=== PATIENT | female | born 2000 | race Two or more races ===

== ENCOUNTER 2024-09-04 00:22 | Emergency (ER) | payer OTHER ==
[~2024-09-04] VITALS: Ht 167.6 cm; Wt 90.7 kg
[2024-09-04] MEDS ORDERED: TDAP DIPH,PERTUSS,TET VAC/PF 0.5 ML DISP.SYRIN IM ONE (00:54)
[2024-09-04] MEDS: NEOMY/BACITRA/POLYMYXIN B OINT UD PACKET TP ONE (00:59)
[2024-09-04] MEDS: TDAP DIPH,PERTUSS,TET VAC/PF 0.5 ML DISP.SYRIN IM ONE (01:00)
[2024-09-04 01:04] VITALS: BP 122/80; O2SAT 100
== END 2024-09-04 01:04 | disposition left against medical advice (07) ==
LOC: ER 00:41
DX: S00.91XA Abrasion of unspecified part of head, initial encounter (principal); F10.129 Alcohol abuse with intoxication, unspecified; F17.290 Nicotine dependence, other tobacco product, uncomplicated; K13.79 Other lesions of oral mucosa; K58.9 Irritable bowel syndrome, unspecified; Z59.00 Homelessness unspecified; Y04.0XXA Assault by unarmed brawl or fight, initial encounter; Y93.89 Activity, other specified; Y92.89 Other specified places as the place of occurrence of the external cause; Y99.8 Other external cause status; Y90.9 Presence of alcohol in blood, level not specified
CPT/HCPCS: 90715; A4606; A4663